=== PATIENT | female | born 1940 | race Caucasian/White ===

== ENCOUNTER 2018-05-16 12:06 | Emergency (ER) | payer MEDICARE ==
[2018-05-16 13:10] VITALS: BP 133/80
--- NOTE | 2018-05-16 13:24 | UC ---
Complaint Female HPI - HPI Summary HPI Summary: pain and burning with urination, no fevers chills nausea vomiting or back pain - History Of Current Complaint Hx Obtained From: Patient ?: No Onset/Duration: Gradual Onset, Lasting Days, Still Present Timing: Constant Pain Intensity: 6 Pain Scale Used: 0-10 Numeric Character: Burning Aggravating Factor(s): Movement, Urination Alleviating Factor(s): Other - has been using vagisil and azo with some relief Associated Signs And Symptoms: Positive: Negative <Cherri Allred - Last Filed: 05/16/18 15:24> <Marlon Bills - Last Filed: 05/17/18 07:00> - History Of Current Complaint Chief Complaint: UCGU Stated Complaint: URINARY Time Seen by Provider: 05/16/18 13:02 - Allergies/Home Medications Allergies/Adverse Reactions: Allergies Allergy/AdvReac Type Severity Reaction Status Date / Time iodine Allergy Severe Difficulty Verified 05/16/18 13:15 Breathing Adhesive Tape Allergy Rash Verified 05/16/18 13:15 doxycycline Allergy Nausea Verified 05/16/18 13:15 latex Allergy Rash Verified 05/16/18 13:15 morphine Allergy Unknown Verified 05/16/18 13:15 Reaction Details povidone-iodine Allergy Rash Verified 05/16/18 13:15 [From Betadine] soap [From Betadine] Allergy Rash Verified 05/16/18 13:15 sulfamethoxazole Allergy Difficulty Verified 05/16/18 13:15 [From Bactrim] Breathing trimethoprim [From Bactrim] Allergy Difficulty Verified 05/16/18 13:15 Breathing Home Medications: Home Medications ALPRAZolam TAB* [Xanax TAB*] 0.25 mg PO Q8H PRN 05/16/18 [History Confirmed 06/26] Cholecalciferol TAB* [Vitamin D TAB*] 2,000 units DAILY 05/16/18 [History Confirmed 05/16/18] Furosemide TAB* [Lasix TAB*] 20 mg DAILY 05/16/18 [History Confirmed 05/16/18] Gabapentin CAP(*) [Neurontin 100 mg CAP(*)] 1 tab TID 05/16/18 [History Confirmed 05/16/18] Lactobacillus Acidophilus [Acidophilus] 1 cap DAILY 05/16/18 [History Confirmed 05/16/18] Levothyroxine TAB* [Synthroid TAB*] 75 mcg PO DAILY 05/16/18 [History Confirmed 05/16/18] Olmesartan Medoxomil [Benicar] 20 mg PO DAILY 05/16/18 [History Confirmed ] Pantoprazole Sodium 1 tab DAILY 05/16/18 [History Confirmed 05/16/18] Potassium Chlor TAB* [Klor Con ER TAB 10 MEQ*] 10 meq DAILY 05/16/18 [History Confirmed 05/16/18] Sertraline* [Zoloft*] 25 mg PO DAILY 05/16/18 [History Confirmed 05/16/18] Simvastatin 60 mg PO BEDTIME 05/16/18 [History Confirmed 05/16/18] PMH/Surg Hx/FS Hx/Imm Hx Previously Healthy: No - recent c.diff Endocrine History: Hypothyroidism, Dyslipidemia Cardiovascular History: Hypertension GI/ History: Gastroesophageal Reflux Psychological History: Anxiety - Surgical History Surgical History: Yes Surgery Procedure, Year, and Place: [facility] '98, '00. LEFT TOTAL SHOULDER REPLACEMENT--MARCH 23, 2015. Gallbladder 2015 - Family History Known Family History: Positive: None - Social History Occupation: Retired Lives: With Family Alcohol Use: None Substance Use Type: None Smoking Status (MU): Former Smoker When Did the Patient Quit Smoking/Using Tobacco: 30 years ago - Immunization History Most Recent Influenza Vaccination: yes Most Recent Tetanus Shot: UNK <Cherri Allred - Last Filed: 05/16/18 15:24> Review of Systems Constitutional: Negative Skin: Negative Eyes: Negative ENT: Negative Respiratory: Negative Cardiovascular: Negative Gastrointestinal: Negative Genitourinary: Dysuria, Frequency, Urgency Motor: Negative Neurovascular: Negative Musculoskeletal: Negative Neurological: Negative Psychological: Negative Is Patient Immunocompromised?: No All Other Systems Reviewed And Are Negative: Yes <Cherri Allred - Last Filed: 05/16/18 15:24> Physical Exam Triage Information Reviewed: Yes Appearance: Well-Appearing, No Pain Distress, Well-Nourished Vital Signs: Initial Vital Signs Temp 97.6 F 05/16/18 13:00 Pulse 79 05/16/18 13:00 Resp 16 05/16/18 13:00 BP 133/80 05/16/18 13:00 Pulse Ox 94 05/16/18 13:00 Vital Signs Reviewed: Yes Eye Exam: Normal Eyes: Positive: Conjunctiva Clear ENT Exam: Normal ENT: Positive: Normal ENT inspection, Hearing grossly normal, Pharynx normal, TMs normal, Uvula midline. Negative: Nasal congestion, Nasal drainage, Trismus , Muffled voice, Hoarse voice, Dental tenderness, Sinus tenderness Dental Exam: Normal Neck exam: Normal Neck: Positive: Supple, Nontender, No Lymphadenopathy Respiratory Exam: Normal Respiratory: Positive: Chest non-tender, No respiratory distress, No accessory muscle use Cardiovascular Exam: Normal Cardiovascular: Positive: RRR, No Murmur, Pulses Normal, Brisk Capillary Refill Abdominal Exam: Normal Abdomen Description: Positive: No Organomegaly, Soft, Bruit, CVA Tenderness (R) , CVA Tenderness (L), Other: - some suprapubic discomfort Bowel Sounds: Positive: Present Pelvic Exam: Positive: Other - some prolapse (or swelling of urethera) Musculoskeletal Exam: Normal Musculoskeletal: Positive: Strength Intact, ROM Intact, No Edema Neurological Exam: Normal Neurological: Positive: Alert, Muscle Tone Normal Psychological Exam: Normal Skin Exam: Normal <Cherri Allred - Last Filed: 05/16/18 15:24> Vital Signs: Initial Vital Signs Temp 97.6 F 05/16/18 13:00 Pulse 79 05/16/18 13:00 Resp 16 05/16/18 13:00 BP 133/80 05/16/18 13:00 Pulse Ox 94 05/16/18 13:00 <Marlon Bills - Last Filed: 05/17/18 07:00> Diagnostics - Laboratory Diagnostic Studies Completed/Ordered: urine discolored orage with azo---will send for a culture <Cherri Allred - Last Filed: 05/16/18 15:24> Complaint Female Dx - Course Course Of Treatment: will culture urine send a swab to lab for bv/yeast, will start macobid and change to monistat externally from vagisil--follow with pcp and urology this week - Differential Dx/Diagnosis Provider Diagnoses: dysuria, prolapse urethera <Cherri Allred - Last Filed: 05/16/18 15:24> Discharge - Sign-Out/Discharge Documenting (check all that apply): Discharge/Admit/Transfer - Billing Disposition and Condition Condition: STABLE Disposition: Home <Cherri Allred Last Filed: 05/16/18 15:24> - Billing Disposition and Condition Condition: STABLE Disposition: Home <Marlon Bills - Last Filed: 05/17/18 07:00> - Discharge Plan Condition: Stable Disposition: HOME Prescriptions: Nitrofurantoin Monohyd/M-Cryst [Macrobid 100 mg Capsule] 100 mg PO BID #10 cap Patient Education Materials: Dysuria (ED), Urinary Tract Infection in Older Adults (ED) Referrals: Tanesha Cervantes MD [Primary Care Provider] - 1 Week Asif Corrigan MD [Medical Doctor] - 1 Week Additional Instructions: Per institutional requirements, I have reviewed the chart, however, I was not consulted specifically or made aware of this patient by the above midlevel provider. I did not personally evaluate, interact with , or disposition this patient.
--- NOTE | 2018-05-18 07:12 | UC ---
- Progress Note Progress Note: please call the pt. with her lab results + Gardnerella she may stop Macrobid will ERX Flagyl 500 mg bid x 7b days Discharge - Sign-Out/Discharge Documenting (check all that apply): Discharge/Admit/Transfer - Discharge Plan Condition: Stable Disposition: HOME Prescriptions: metroNIDAZOLE [Flagyl] 500 mg PO BID #14 tablet Nitrofurantoin Monohyd/M-Cryst [Macrobid 100 mg Capsule] 100 mg PO BID #10 cap Patient Education Materials: Dysuria (ED), Urinary Tract Infection in Older Adults (ED) Referrals: Tanesha Cervantes MD [Primary Care Provider] - 1 Week Asif Corrigan MD [Medical Doctor] - 1 Week Additional Instructions: Per institutional requirements, I have reviewed the chart, however, I was not consulted specifically or made aware of this patient by the above midlevel provider. I did not personally evaluate, interact with , or disposition this patient. - Billing Disposition and Condition Condition: STABLE Disposition: Home
== END 2018-05-16 14:27 | disposition home or self-care (01) ==
LOC: UCCORT 12:06
DX: N81.0 Urethrocele (principal); R30.0 Dysuria; B96.89 Other specified bacterial agents as the cause of diseases classified elsewhere; Z88.1 Allergy status to other antibiotic agents; Z88.5 Allergy status to narcotic agent; Z88.8 Allergy status to other drugs, medicaments and biological substances; E03.9 Hypothyroidism, unspecified; I10 Essential (primary) hypertension; E78.5 Hyperlipidemia, unspecified; K21.9 Gastro-esophageal reflux disease without esophagitis; F41.9 Anxiety disorder, unspecified
CPT/HCPCS: 87086; 87480; 87510; 87660; 99212; G0463